=== PATIENT | female | born 2000 | race African-American/Black ===

== ENCOUNTER 2021-07-12 10:52 | Emergency (ER) | payer BC ==
[~2021-07-12] VITALS: Ht 162.6 cm; Wt 56.3 kg
[2021-07-12 11:23] VITALS: BP 104/73
--- NOTE | 2021-07-12 12:39 | NUR ---
patient ambulate from lobby. assumed care
--- NOTE | 2021-07-12 12:57 | NUR ---
UA PROVIDED. SENT UA SAMPLE TO LAB. IV STARTED 20G RIGHT AC WITH IVF RUNNING AND LAB DRAW OFF OF IV START. WAITING FOR MD ASSESSMENT
[2021-07-12 13:03] LABS: MICROSCOPIC INDICATED
[2021-07-12] MEDS ORDERED: FAMOTIDINE 20 MG/2 ML ONE (13:46)
[2021-07-12] MEDS ORDERED: MAALOX/HYOSCYAMINE/LIDOCAINE 45 ML BTL ONE (13:46)
[2021-07-12] MEDS ORDERED: ONDANSETRON 2MG/ML, 2ML ONE (13:46)
[2021-07-12] MEDS ORDERED: MAALOX/HYOSCYAMINE/LIDOCAINE 45 ML BTL PO ONE (14:00)
[2021-07-12] MEDS ORDERED: ONDANSETRON 2MG/ML, 2ML IVPush ONE (14:00)
[2021-07-12] MEDS ORDERED: FAMOTIDINE 20 MG/2 ML IVPush ONE (14:00)
[2021-07-12 14:13] LABS: ALBUMIN 3.9 g/dL (3.4-5.0); ANION GAP 8 mmol/L (5-15); CALCIUM 9.5 mg/dL (8.5-10.1); CHLORIDE 108 mmol/L (98-107)
[2021-07-12 14:20] LABS: ALANINE AMINOTRANSFERASE 26 U/L (12-78); ALKALINE PHOSPHATASE 48 U/L (45-117); BILIRUBIN,TOTAL 0.7 mg/dL (0.2-1.0); CREATININE 0.85 mg/dL (0.55-1.02); TOTAL PROTEIN 7.7 g/dL (6.4-8.2)
[2021-07-12 14:25] LABS: BASOPHILS % (AUTO) 1 % (0-1); EOSINOPHILS % (AUTO) 1 % (1-7); LYMPHOCYTES % (AUTO) 31 % (22-44); MEAN CORPUSCULAR HEMOGLOBIN 31.4 pg (27.0-34.8); MEAN CORPUSCULAR HGB CONC 33.2 g/dL (32.4-35.8); MEAN PLATELET VOLUME 9.3 fL (7.4-10.4); MONOCYTES % (AUTO) 4 % (2-9); NEUTROPHILS % (AUTO) 63 % (42-75); PLATELET COUNT 320 x10^3/uL (130-400); RED BLOOD COUNT 4.45 x10^6/uL (3.82-5.3)
== END 2021-07-12 15:59 | disposition home or self-care (01) ==
LOC: ED 15:30
DX: G89.29 Other chronic pain (principal); R10.13 Epigastric pain; R42 Dizziness and giddiness; R11.0 Nausea; J45.909 Unspecified asthma, uncomplicated
CPT/HCPCS: 36415; 80053; 81001; 83690; 84703; 85025; 87086; 96374; 96375; 99284; J2405

== ENCOUNTER 2021-08-11 06:17 | Emergency (ER) | payer BC ==
[~2021-08-11] VITALS: Ht 162.6 cm; Wt 55.1 kg
--- NOTE | 2021-08-11 06:39 | NUR ---
RESEARCH PROGRAM ASSISTANT: PT. PROVIDED WITH UA CUP AND CLEAN CATCH INSTRUCTIONS. VERBALIZED UNDERSTANDING. EKG DONE IN TRIAGE.
[2021-08-11] MEDS ORDERED: ONDANSETRON ODT 4 MG PO ONE (08:00)
[2021-08-11 08:47] LABS: BASOPHILS % (AUTO) 1 % (0-1); EOSINOPHILS % (AUTO) 1 % (1-7); LYMPHOCYTES % (AUTO) 35 % (22-44); MEAN CORPUSCULAR HGB CONC 34.1 g/dL (32.4-35.8); MEAN PLATELET VOLUME 7.6 fL (7.4-10.4); MONOCYTES % (AUTO) 7 % (2-9); NEUTROPHILS % (AUTO) 56 % (42-75); PLATELET COUNT 324 x10^3/uL (130-400); RED BLOOD COUNT 4.43 x10^6/uL (3.82-5.3); RED CELL DISTRIBUTION WIDTH 12.7 % (9.6-15.2)
[2021-08-11 09:04] LABS: ALANINE AMINOTRANSFERASE 18 U/L (12-78); ALBUMIN 3.8 g/dL (3.4-5.0); ANION GAP 8 mmol/L (5-15); CALCIUM 9.2 mg/dL (8.5-10.1); CHLORIDE 107 mmol/L (98-107); CREATININE 0.79 mg/dL (0.55-1.02)
[2021-08-11 09:08] LABS: ALKALINE PHOSPHATASE 56 U/L (45-117); TOTAL PROTEIN 7.2 g/dL (6.4-8.2)
[2021-08-11 09:10] LABS: BILIRUBIN,TOTAL 0.9 mg/dL (0.2-1.0)
[2021-08-11] MEDS ORDERED: ONDANSETRON ODT 4 MG ONE (11:09)
[2021-08-11 11:41] VITALS: BP 114/65
--- NOTE | 2021-08-11 11:57 | NUR ---
SHARP CP AND BODY ACHES STARTING YESTERDAY AM. "I HAVEN'T BEEN ABLE TO KEEP ANY FOOD DOWN FOR A WEEK". PT IN BED WITH CONT SUPPLY CHAIN PLANNER, SPO2, BP Q 30 MIN, SIDE RAILS UP.
--- NOTE | 2021-08-11 12:14 | NUR ---
PT DRINGING FLUIDS PER MD ORDER. MD NOTIFIED. TO AMBULATED WITH STEADY GAIT KELSEY THE REST ROOM FOR UA
[2021-08-11 12:48] LABS: MICROSCOPIC INDICATED
[2021-08-11] MEDS ORDERED: CEFTRIAXONE 1,000 MG ONE (13:24)
[2021-08-11] MEDS ORDERED: CEFTRIAXONE 1,000 MG IM ONE (13:30)
--- NOTE | 2021-08-11 15:16 | NUR ---
Gave report to Carline He RN
== END 2021-08-11 17:11 | disposition home or self-care (01) ==
LOC: ED 10:13
DX: N30.01 Acute cystitis with hematuria (principal); Z20.822 Contact with and (suspected) exposure to COVID-19; R11.2 Nausea with vomiting, unspecified
CPT/HCPCS: 36415; 71045; 80053; 81001; 84703; 85025; 87086; 93005; 96372; 99285; J0696; Q0162; U0003; U0005